=== PATIENT | female | born 1945 | race Caucasian/White ===

== ENCOUNTER 2018-08-09 14:46 | Emergency (ER) | payer BC ==
[2018-08-09] MEDS ORDERED: Acetaminophen/HYDROcodone 325-10 MG Tab PO ONE (15:06)
--- NOTE | 2018-08-09 15:21 | EDM.PDOC ---
ED HPI GENERAL MEDICAL PROBLEM - General Chief Complaint: Upper Extremity Injury/Pain Stated Complaint: POSS BROKEN RIGHT WRIST Time Seen by Provider: 08/09/18 15:00 Source of Information: Reports: Patient History Limitations: Reports: No Limitations - History of Present Illness INITIAL COMMENTS - FREE TEXT/NARRATIVE: 73 y/o female presents with cc right wrist pain. She reports she was on a 3 step ladder when she went down a step and missed the 2 nd one and landed on her right wrist. She denies any neck, headache or back pain. She is not taking any blood thinners. She is accompanied by her . She didn't take anything for pain prior to arrival. She is right handed. Onset: Today, Sudden Onset Date: 08/09/18 Onset Time: 14:30 Duration: Getting Worse Location: Reports: Upper Extremity, Right Quality: Reports: Ache, Throbbing Severity: Mild Improves with: Reports: None Worsens with: Reports: None Associated Symptoms: Denies: Confusion, Headaches, Shortness of Breath Right Wrist Pain Score (Numeric/FACES): 7 - Related Data Allergies Allergy/AdvReac Type Severity Reaction Status Date / Time desloratadine Allergy sore tongue Verified 10/01/15 08:16 [From Clarinex-D] pseudoephedrine sulfate Allergy sore tongue Verified 10/01/15 08:16 [From Clarinex-D] Home Meds: Home Meds Anastrozole [Arimidex] 1 mg PO DAILY 08/09/18 [History] Aspirin [Halfprin] 81 mg PO DAILY 08/09/18 [History] Meloxicam [Mobic] 7.5 mg PO DAILY 08/09/18 [History] Metoprolol Tartrate 25 mg PO DAILY 08/09/18 [History] oxyCODONE HCl/Acetaminophen [Percocet 7.5-325 mg Tablet] 1 each PO Q6HR PRN 4 Days #16 tablet 08/09/18 [Rx] Past Medical History Musculoskeletal History: Reports: Osteoarthritis, Osteoporosis - Past Surgical History Female Surgical History: Reports: Mastectomy Other Female Surgeries/Procedures: bilateral Social & Family History - Tobacco Use Smoking Status *Q: Former Smoker Used Tobacco, but Quit: Yes Month/Year Tobacco Last Used: 5 yr - Caffeine Use Caffeine Use: Reports: Coffee, Soda, Tea - Recreational Drug Use Recreational Drug Use: No Review of Systems - Review of Systems Review Of Systems: See Below Constitutional: Reports: No Symptoms Eyes: Reports: No Symptoms Ears: Denies: Dizziness Nose: Reports: No Symptoms Mouth/Throat: Reports: No Symptoms Respiratory: Denies: Shortness of Breath Cardiovascular: Denies: Chest Pain Genitourinary: Reports: No Symptoms Musculoskeletal: Reports: Arm Pain (right wrist). Denies: Neck Pain, Back Pain Skin: Reports: No Symptoms, Other (right wrist edematous) Neurological: Reports: No Symptoms Psychiatric: Reports: No Symptoms ED EXAM, GENERAL - Physical Exam Exam: See Below Exam Limited By: No Limitations General Appearance: Alert, WD/WN, No Apparent Distress Eye Exam: Bilateral Eye: EOMI, PERRL Ears: Normal External Exam, Normal Canal, Hearing Grossly Normal, Normal TMs Nose: Normal Inspection, Normal Mucosa, No Blood Throat/Mouth: Normal Inspection, Normal Lips, Normal Teeth, Normal Gums, Normal Oropharynx, Normal Voice, No Airway Compromise Head: Atraumatic, Normocephalic Neck: Normal Inspection, Supple, Non-Tender Respiratory/Chest: No Respiratory Distress, Lungs Clear, Normal Breath Sounds, No Accessory Muscle Use, Chest Non-Tender Cardiovascular: Normal Peripheral Pulses, Regular Rate, Rhythm, No Edema, No Gallop, No JVD, No Murmur, No Rub GI/Abdominal: Normal Bowel Sounds, Soft, Non-Tender, No Organomegaly, No Distention, No Abnormal Bruit, No Mass, Pelvis Stable Back Exam: Normal Inspection, Full Range of Motion Extremities: No Pedal Edema, Normal Capillary Refill, Joint Swelling, Arm Pain, Limited Range of Motion, Other (right wrist edematous, decreased ROM due to pain , neurovascularly intact. ) Neurological: Alert, Oriented, Normal Cognition, Normal Gait Psychiatric: Normal Affect, Normal Mood Skin Exam: Warm, Dry, Intact, Normal Color, No Rash Lymphatic: No Adenopathy ED TRAUMA EXTREMITY PROCEDURES - Splinting Lower Extremity Splint Site: right wrist Pre-Procedure NV Status: Normal Post-Procedure NV Status: Normal Splint Material: Fiberglass Splint Design: Volar Applied & Form Fitted By: Provider Provider Post-Splint Application NV Check: NV Status Normal, Good Position Complications: No Progress/Comments: Patient tolerated procedure well. Course - Vital Signs Last Recorded V/S: Last Vital Signs Temp 96.5 F 08/09/18 15:05 Pulse 83 08/09/18 15:05 Resp 20 08/09/18 15:05 BP 155/67 H 08/09/18 15:05 Pulse Ox 95 08/09/18 15:05 - Orders/Labs/Meds Meds: Medications Discontinued Medications Generic Name Dose Route Start Last Admin Trade Name Freq PRN Reason Stop Dose Admin Hydrocodone Bitart/Acetaminophen 1 tab 08/09/18 15:06 08/09/18 15:24 [place] 325-10 Mg PO 08/09/18 15:07 1 tab ONETIME ONE Administration - Re-Assessments/Exams Free Text/Narrative Re-Assessment/Exam: 08/09/18 1545 x-ray revealed impacted distal radial fracture minimally displaced. I placed her in dorsal splint and instructed her on compartment syndrome. I will discharge home with instructions to follow up with Dr. Linton in a few days. I will discharge home with Percocet for pain management. I instructed her not to take this medication and drink, drive or operate machinery. She verbalized understanding and is comfortable with plan for discharge. 08/09/18 18:45 Departure - Departure Time of Disposition: 15:59 Disposition: Home, Self-Care 01 Condition: Good Clinical Impression: Fracture of radius Qualifiers: Encounter type: initial encounter Radius location: head Fracture type: closed - Discharge Information Prescriptions: oxyCODONE HCl/Acetaminophen [Percocet 7.5-325 mg Tablet] 1 each PO Q6HR PRN 4 Days #16 tablet PRN Reason: wrist pain Instructions: Acute Compartment Syndrome, Radial Fracture, Cast or Splint Care , Adult, [id number] Referrals: Manav Kasper MD [Primary Care Provider] - Brian Linton MD [Physician] - Forms: ED Department Discharge Additional Instructions: You have been diagnosis with right wrist fracture. You have been given Percocet for pain. Do not take this medication and drink, drive or operate machinery while taking it. You need to increase your fiber and water intake to prevent constipation. Follow up with Dr. Linton [phone]. Return to the ER for any new or acute worsening symptoms.
--- NOTE | 2018-08-09 17:07 | CR ---
Right wrist: Two views of the right wrist were obtained. Comparison: No prior wrist exam. Fracture is identified within the metaphysis of the distal radius. Posterior impaction is seen with dorsal tilt of the distal radial articular margin. Osteopenia is present. No additional abnormality is appreciated. Impression: 1. Impacted distal radial fracture as described above. Diagnostic code #3
== END 2018-08-09 16:30 | disposition home or self-care (01) ==
LOC: JD.ED 14:46
DX: S52.501A Unspecified fracture of the lower end of right radius, initial encounter for closed fracture (principal); Z79.82 Long term (current) use of aspirin; Z79.899 Other long term (current) drug therapy; Z87.891 Personal history of nicotine dependence; Z88.8 Allergy status to other drugs, medicaments and biological substances; W11.XXXA Fall on and from ladder, initial encounter
CPT/HCPCS: 29125; 73100; 99283; A9270

== ENCOUNTER 2018-08-16 07:41 | Day surgery (SDC) | payer BC, MEDICARE ==
--- NOTE | 2018-08-16 07:18 | PCM.PREANE ---
<[place] - Last Filed: 08/16/18 07:13> Preanesthetic Assessment - Anesthesia/Transfusion/Family Hx Anesthesia History: Prior Anesthesia Without Reaction Family History of Anesthesia Reaction: No Transfusion History: No Prior Transfusion(s) Intubation History: Unknown - Review of Systems Pulmonary: No Symptoms (former smoker: quit 2013), Shortness of Breath Cardiovascular: No Symptoms (HTN) Neurological: No Symptoms (bilateral mastectomy) - Physical Assessment NPO Status Date: 08/15/18 Vital Signs: Last Vital Signs Temp 97.0 F 08/16/18 07:45 Pulse 57 L 08/16/18 07:45 Resp 16 08/16/18 07:45 BP 197/61 H 08/16/18 07:45 Pulse Ox 94 L 08/16/18 07:45 Height: 5 ft 5 in ASA Class: 2 Mental Status: Alert & Oriented x3 - Imaging/EKG Impressions: EKG: SR rate=60, minimal ST elevation inferior leads - Allergies Allergies/Adverse Reactions: Allergies Allergy/AdvReac Type Severity Reaction Status Date / Time latex Allergy Rash Verified 08/15/18 14:49 acetaminophen [From Percocet] AdvReac Vomiting Verified 08/15/18 14:49 oxycodone [From Percocet] AdvReac Vomiting Verified 08/15/18 14:49 metals Allergy Rash Uncoded 08/15/18 14:49 - Anesthesia Plan Pre-Op Medication Ordered: Beta Rebecca Beta Rebecca: Metoprolol Med Last Dose Date: 08/16/18 - Acknowledgements Anesthesia Type Planned: MAC Pt an Appropriate Candidate for the Planned Anesthesia: Yes Alternatives and Risks of Anesthesia Discussed w Pt/Guardian: Yes Pt/Guardian Understands and Agrees with Anesthesia Plan: Yes PreAnesthesia Questionnaire HEENT History: Reports: None Cardiovascular History: Reports: Hypertension, Other (See Below) Other Cardiovascular History: Superficial thrombophlebitis of left leg Respiratory History: Reports: SOB Other Gastrointestinal History: Right lateral abdominal pain, RLQ abdominal pain Genitourinary History: Reports: None Other OB/BYN History: Right breast lump Musculoskeletal History: Reports: Osteoarthritis, Osteoporosis Other Musculoskeletal History: Left leg pain, left leg swelling Neurological History: Reports: None Psychiatric History: Reports: None Endocrine/Metabolic History: Reports: None Hematologic History: Reports: None Immunologic History: Reports: None Oncologic (Cancer) History: Reports: Breast Other Oncologic History: Bilateral malignant neoplasm of breast Dermatologic History: Reports: None - Past Surgical History Head Surgeries/Procedures: Reports: None HEENT Surgical History: Reports: None Cardiovascular Surgical History: Reports: None Respiratory Surgical History: Reports: None GI Surgical History: Reports: None Female Surgical History: Reports: Breast Biopsy, Mastectomy Endocrine Surgical History: Reports: None Neurological Surgical History: Reports: None Musculoskeletal Surgical History: Reports: None Dermatological Surgical History: Reports: None - SUBSTANCE USE Smoking Status *Q: Former Smoker Second Hand Smoke Exposure: No Recreational Drug Use History: No - HOME MEDS Home Medications: Home Meds Anastrozole [Arimidex] 1 mg PO BEDTIME 08/09/18 [History] Aspirin [Halfprin] 81 mg PO BEDTIME 08/09/18 [History] Meloxicam [Mobic] 7.5 mg PO BEDTIME 08/09/18 [History] Calcium Carbonate/Vitamin D3 [Calcium 600 + Vit D 200] 2 tab PO BEDTIME [History] Metoprolol Succinate 50 mg PO BEDTIME 08/15/18 [History] Multivitamin with Minerals [Multivitamins with Minerals] 1 tab PO BEDTIME [History] traMADol [Ultram] 50 mg PO Q4H PRN #10 08/16/18 [Rx] - CURRENT (IN HOUSE) MEDS Current Meds: Current Medications Lactated Ringer's (Ringers, Lactated) 1,000 mls @ 125 mls/hr IV ASDIRECTED JACOB Stop: 08/16/18 23:00 Lidocaine/Sodium Bicarbonate (Buffered Lidocaine 1% In Ns 8.4%) 0.25 ml IDERM ONETIME PRN PRN Reason: Prior to IV Start Stop: 08/16/18 18:00 Sodium Chloride (Saline Flush) 10 ml FLUSH ASDIRECTED PRN PRN Reason: Keep Vein Open Stop: 08/16/18 18:00 Discontinued Medications Fentanyl (Sublimaze) Confirm Administered Dose 100 mcg .ROUTE .STK-MED ONE Stop: 08/16/18 06:52 Lidocaine HCl (Xylocaine-Mpf 1%) Confirm Administered Dose 6 mls @ as directed .ROUTE .STK-MED ONE Stop: 08/16/18 06:51 Ondansetron HCl (Zofran) Confirm Administered Dose 4 mg .ROUTE .STK-MED ONE Stop: 08/16/18 06:51 Propofol (Diprivan 20 Ml) Confirm Administered Dose 200 mg .ROUTE .STK-MED ONE Stop: 08/16/18 06:51 <Tania Hernandez - Last Filed: 08/16/18 08:41> Preanesthetic Assessment - Anesthesia/Transfusion/Family Hx Anesthesia History: Prior Anesthesia Without Reaction Family History of Anesthesia Reaction: No Transfusion History: No Prior Transfusion(s) Intubation History: Unknown - Review of Systems General: Fatigue (since recent fall) Pulmonary: No Symptoms (reports COPD, 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 ( IV access only noted/available on the left wrist, IV placed with minimal IV fluids planned.)/ Breast Ca with Mastectomy noted July of 2016, chemotherapy December of 2015), Dizziness, Headache Other: Reports: Easy Bleeding, Easy Bruising, Sinus Problem (seasonal allergies) , Neck Pain (from fall), Anxiety - Physical Assessment NPO Status Time: 21:00 Pulse: 57 O2 Sat by Pulse Oximetry: 94 Respiratory Rate: 16 Blood Pressure: 197/61 Temperature: 97.0 F Height: 5 ft 5 in Weight: 83.007 kg ASA Class: 2 Mental Status: Alert & Oriented x3 Airway Class: Mallampati = 2 Dentition: Reports: Dentures (upper and lower) Thyro-Mental Finger Breadths: 3 Mouth Opening Finger Breadths: 3 ROM/Head Extension: Full Lungs: Clear to Auscultation, Normal Respiratory Effort Cardiovascular: Regular Rate, Regular Rhythm, No Murmurs - Anesthesia Plan Pre-Op Medication Ordered: Beta Rebecca Beta Rebecca: Metoprolol Med Last Dose Date: 08/15/18 Med Last Dose Time: 21:00 - Acknowledgements Anesthesia Type Planned: MAC Pt an Appropriate Candidate for the Planned Anesthesia: Yes Alternatives and Risks of Anesthesia Discussed w Pt/Guardian: Yes Pt/Guardian Understands and Agrees with Anesthesia Plan: Yes
[~2018-08-16 07:41] MED LIST: Lidocaine 1% 6 ML ONE; Ondansetron 4 MG/2 ML SDV ONE; Propofol 200 MG/20 ML SDV ONE; fentaNYL 100 MCG/2 ML SDV ONE
[2018-08-16] MEDS ORDERED: Sodium Chloride 0.9% 10 ML Syringe FLUSH PRN (08:02)
[2018-08-16] MEDS ORDERED: Lidocaine 1%/Sod Bicarbonate in NS 8.4% 1 ML Syringe IDERM PRN (08:02)
[2018-08-16] MEDS ORDERED: Lactated Ringers 1,000 ML IV SCH (08:15)
[2018-08-16] MEDS ORDERED: Midazolam 1 MG/ML 2 ML SDV ONE (08:54)
--- NOTE | 2018-08-16 09:50 | CR ---
Right wrist: Five fluoroscopic spot views of the right wrist were obtained utilizing C-arm device. Comparison: Prior right wrist study of 08/09/18. Study shows reduction of previous impacted distal radial fracture. Minimal dorsal tilt remains. Final films show fiberglass cast in place. Fluoroscopy time is given as 16.6 seconds. Impression: 1. Procedural study as noted above. Diagnostic code #2
--- NOTE | 2018-08-16 09:52 | PCM48HPAN ---
Post Anesthesia Note - EVALUATION WITHIN 48HRS OF ANESTHETIC Vital Signs in Normal Range: Yes Patient Participated in Evaluation: Yes Respiratory Function Stable: Yes Airway Patent: Yes Cardiovascular Function Stable: Yes Hydration Status Stable: Yes Pain Control Satisfactory: Yes Nausea and Vomiting Control Satisfactory: Yes Mental Status Recovered: Yes Pulse Rate: 66 SaO2: 94 (2L/NC) Resp Rate: 11 Blood Pressure: 158/73
--- NOTE | 2018-08-18 10:42 | PCM.OPNOTE ---
- General Post-Op/Procedure Note Date of Surgery/Procedure: 08/16/18 Operative Procedure(s): closed reduction with casting of right distal radius fracture Pre Op Diagnosis: displaced right distal radius fracture Post-Op Diagnosis: Same Anesthesia Technique: MAC Primary Surgeon: Brian Linton Anesthesia Provider: [place] Service Transformer Repair Supervisor: Carline Velez in mLs: 0 Complications: None Condition: Good
--- NOTE | 2018-08-18 11:16 | OR ---
DATE OF OPERATION: 08/16/2018 SURGEON: Brian Linton MD OPERATION PERFORMED: Closed reduction with casting of right distal radius fracture. PREOPERATIVE DIAGNOSIS: Displaced right distal radius fracture. POSTOPERATIVE DIAGNOSIS: Displaced right distal radius fracture. ANESTHESIA: MAC. ANESTHESIA PROVIDER: [place] CRNA ASSISTANTS: Carline Velez PA-C ESTIMATED BLOOD LOSS: Not applicable. COMPLICATIONS: None. CONDITION: Stable. DESCRIPTION OF PROCEDURE: The patient was identified in the preop holding area. Proper site was marked and identified by the surgeon. The patient was taken back to the operating theater, where after adequate anesthesia, the patient's time-out was performed. At this time, C-arm fluoroscopy showed a displaced right distal radius fracture. At this time, a closed reduction maneuver with traction as well as dorsal pressure to volar pressure was applied. At this time, it was found have adequate jewish of radial height as well as neutral inclination on AP and lateral views. Under cast padding was then placed and a fiberglass cast was applied with 3-point molding, applied until the cast was set. At this time, the patient tolerated the procedure well, was sent to PACU in stable condition. She will follow up for repeat radiographs to cast in clinic. TAHIR /[id number]
== END 2018-08-16 10:05 | disposition home or self-care (01) ==
LOC: JD.SDS 07:41
PROVIDERS: ATTEND Orthopaedic Surgery
DX: S52.591A Other fractures of lower end of right radius, initial encounter for closed fracture (principal); I10 Essential (primary) hypertension; J44.9 Chronic obstructive pulmonary disease, unspecified; F41.9 Anxiety disorder, unspecified; G47.33 Obstructive sleep apnea (adult) (pediatric); W19.XXXA Unspecified fall, initial encounter; Z90.13 Acquired absence of bilateral breasts and nipples; Z88.6 Allergy status to analgesic agent; Z88.5 Allergy status to narcotic agent; Z91.09 Other allergy status, other than to drugs and biological substances; Z91.040 Latex allergy status; Z85.3 Personal history of malignant neoplasm of breast; Z87.891 Personal history of nicotine dependence; Z79.82 Long term (current) use of aspirin; Z79.1 Long term (current) use of non-steroidal anti-inflammatories (NSAID); Z79.899 Other long term (current) drug therapy
CPT/HCPCS: 01820; 76000; 76000-26; J2001; J2250; J2405; J2704; J3010

== ENCOUNTER 2019-12-27 12:04 | Emergency (ER) | payer BC, MEDICARE ==
--- NOTE | 2019-12-27 13:07 | EDM.PDOC ---
ED HPI GENERAL MEDICAL PROBLEM - General Chief Complaint: Upper Extremity Injury/Pain Stated Complaint: POSS BLOOD CLOT IN R ARM Time Seen by Provider: 12/27/19 12:37 Source of Information: Reports: Patient, RN Notes Reviewed History Limitations: Reports: No Limitations - History of Present Illness INITIAL COMMENTS - FREE TEXT/NARRATIVE: Patient is a 74-year-old female who presents to the ED for evaluation of a possible blood clot in her right arm. Patient states she does have a history of stage III breast cancer, and she notes that she had a bilateral mastectomy on her 70th birthday year. She states she is also gone through chemo and radiation for this. Patient notes that she has had a road trip, that required several hours of travel, and also the use of Rogaine, for her hair loss due to the chemo. She states that she may have either overused the right arm, or developed a blood clot due to the road travel and cancer. She called her primary care provider at [facility], they told her to come here for an ultrasound to rule out the possibility of a blood clot. Patient is only on aspirin and on no regular blood thinners. She is complaining of some mild swelling to her legs as well, but she relates this to traveling. She has not had any fever chills, cough/shortness of breath, nausea/vomiting/diarrhea. She notes no redness or tenderness of her right upper arm, but has appreciated some swelling, and generalized discomfort. Right Arm Pain Score (Numeric/FACES): 2 - Related Data Allergies Allergy/AdvReac Type Severity Reaction Status Date / Time latex Allergy Severe Rash Verified 12/27/19 12:42 acetaminophen [From Percocet] AdvReac Severe Vomiting Verified 12/27/19 12:42 oxycodone [From Percocet] AdvReac Severe Vomiting Verified 12/27/19 12:42 metals Allergy Severe Rash Uncoded 12/27/19 12:42 Home Meds: Home Meds Anastrozole [Arimidex] 1 mg PO BEDTIME 08/09/18 [History] Aspirin [Halfprin] 81 mg PO BEDTIME 08/09/18 [History] Metoprolol Succinate 50 mg PO BEDTIME 08/15/18 [History] Cyanocobalamin (Vitamin B-12) [Vitamin B-12] 1,000 mg PO ASDIRECTED 09/17/20 [History] Omeprazole Magnesium [Prilosec Otc] 20 mg PO DAILY 12/27/19 [History] Past Medical History Cardiovascular History: Reports: Hypertension, Other (See Below) Other Cardiovascular History: Superficial thrombophlebitis of left leg Respiratory History: Reports: SOB Gastrointestinal History: Reports: Other (See Below) Other Gastrointestinal History: Right lateral abdominal pain, RLQ abdominal pain ETHANOL QUALITY LEADER History: Reports: Other (See Below) Other ETHANOL QUALITY LEADER History: Right breast lump Musculoskeletal History: Reports: Osteoarthritis, Osteoporosis Other Musculoskeletal History: Left leg pain, left leg swelling Endocrine/Metabolic History: Reports: Obesity/BMI 30+ Oncologic (Cancer) History: Reports: Breast Other Oncologic History: Bilateral malignant neoplasm of breast stage 3 - Past Surgical History Female Surgical History: Reports: Breast Biopsy, Mastectomy (bilateral) Social & Family History - Caffeine Use Caffeine Use: Reports: Soda Review of Systems - Review of Systems Review Of Systems: Comprehensive ROS is negative, except as noted in HPI. ED EXAM, GENERAL - Physical Exam Exam: See Below Exam Limited By: No Limitations General Appearance: Alert, WD/WN, No Apparent Distress Respiratory/Chest: No Respiratory Distress, Lungs Clear, Normal Breath Sounds, No Accessory Muscle Use, Chest Non-Tender Cardiovascular: Normal Peripheral Pulses, Regular Rate, Rhythm, No Murmur Peripheral Pulses: 2+: Radial (L), Radial (R) Extremities: Normal Inspection, Normal Capillary Refill, Other (slight swelling to right arm as compared to left) Neurological: Alert, Oriented, Normal Cognition, No Motor/Sensory Deficits Psychiatric: Normal Affect, Normal Mood Skin Exam: Warm, Dry, Intact, Normal Color, No Rash Course - Vital Signs Last Recorded V/S: Last Vital Signs Temp 97.5 F 12/27/19 12:49 Pulse 67 12/27/19 12:49 Resp 20 12/27/19 12:49 BP 234/76 H 12/27/19 14:10 Pulse Ox 96 12/27/19 12:49 - Re-Assessments/Exams Free Text/Narrative Re-Assessment/Exam: 12/27/19 13:07 Patient presents to the ED for evaluation of her possible blood clot in her right arm. Ultrasound will be obtained to rule out the possibility of blood clot. It might be due to overuse, as she states she was using Rogaine, and lifting her hands above her head for quite some time in the last week or so as well. 12/27/19 14:22 Patient's ultrasound demonstrates no sign of a thrombosis within the right upper extremity. Patient be discharged home with general recommendations. Departure - Departure Time of Disposition: 14:22 Disposition: Home, Self-Care 01 Condition: Good Clinical Impression: Swelling of right upper extremity, History of bilateral breast cancer - Discharge Information *PRESCRIPTION DRUG MONITORING PROGRAM REVIEWED*: No *COPY OF PRESCRIPTION DRUG MONITORING REPORT IN PATIENT RICHARD: No Referrals: Manav Kasper MD [Primary Care Provider] - Forms: ED Department Discharge Additional Instructions: You were evaluated in the ER today for your right upper arm swelling. An ultrasound was obtained, demonstrates no sign of a blood clot within your right arm. You may use Motrin as needed for further pain relief, every 6 hours. Please follow-up with your regular care provider for the swelling of your right arm, this might be due to the overuse of your arms, as you state that you recently had been applying Rogaine to your head and had your arms lifted above the head for quite some time. Please return the ER at any time if your symptoms should change or worsen. Sepsis Event Note (ED) - Evaluation Sepsis Screening Result: No Definite Risk - Focused Exam Vital Signs: Vital Signs Temp Pulse Resp BP Pulse Ox 12/27/19 14:10 234/76 H 12/27/19 12:49 97.5 F 67 20 217/82 H 96
--- NOTE | 2019-12-27 13:43 | US ---
Right upper extremity venous ultrasound: Duplex and color Doppler evaluation was obtained of the right internal jugular, subclavian, axillary, brachial, cephalic, basilic, radial and ulnar veins. Left internal jugular was also evaluated. Findings: Forearm veins are small in caliber which makes augmentation and phasic flow difficult to see. Compression appears to be normal. Other veins show normal phasic flow, compression and augmentation. Impression: 1. No evidence of venous thrombosis within right upper extremity or within the left internal jugular vein. Diagnostic code #1 This report was dictated in MDT
== END 2019-12-27 14:30 | disposition home or self-care (01) ==
LOC: JD.ED 12:04
DX: R22.31 Localized swelling, mass and lump, right upper limb (principal); I10 Essential (primary) hypertension; M19.90 Unspecified osteoarthritis, unspecified site; E66.9 Obesity, unspecified; Z68.31 Body mass index [BMI] 31.0-31.9, adult; Z91.040 Latex allergy status; Z88.6 Allergy status to analgesic agent; Z88.5 Allergy status to narcotic agent; Z91.048 Other nonmedicinal substance allergy status; Z79.82 Long term (current) use of aspirin; Z85.828 Personal history of other malignant neoplasm of skin
CPT/HCPCS: 93971-26-RT; 93971-RT; 99282; 99283-25